=== PATIENT | female | born 1945 | race Native Hawaiian/Other Pacific Islander ===

== ENCOUNTER 2016-09-05 08:29 | Outpatient (CLI) | payer OTHER, BC ==
[2016-09-05 08:57] LABS: PLATELET COUNT 250 K/uL (152-353)
== END 2016-09-05 19:56 | disposition home or self-care (01) ==
LOC: LABW 08:29
PROVIDERS: Internal Medicine Hematology & Oncology
DX: C91.11 Chronic lymphocytic leukemia of B-cell type in remission (principal)
CPT/HCPCS: 36415; 80053; 83615; 85027

== ENCOUNTER 2017-04-06 11:15 | Outpatient (CLI) | payer OTHER ==
[2017-04-06 11:54] LABS: PLATELET COUNT 258 K/uL (152-353)
[2017-04-06 12:18] LABS: POTASSIUM 3.4 mmol/L (3.6-5.2)
== END 2017-04-06 12:15 | disposition home or self-care (01) ==
LOC: LABW 11:15
PROVIDERS: Internal Medicine Hematology & Oncology
DX: C83.39 Diffuse large B-cell lymphoma, extranodal and solid organ sites (principal)
CPT/HCPCS: 36415; 80053; 83615; 85027

== ENCOUNTER 2017-10-09 15:24 | Outpatient (CLI) | payer OTHER ==
[2017-10-09 16:47] LABS: PLATELET COUNT 263 K/uL (152-353)
[2017-10-09 16:57] LABS: POTASSIUM 3.8 mmol/L (3.6-5.2)
== END 2017-10-09 22:09 | disposition home or self-care (01) ==
LOC: LABW 15:24
PROVIDERS: Internal Medicine Hematology & Oncology
DX: C83.32 Diffuse large B-cell lymphoma, intrathoracic lymph nodes (principal)
CPT/HCPCS: 36415; 80053; 83615; 85027